=== PATIENT | male | born 1985 | race African-American/Black ===

== ENCOUNTER 2017-09-02 20:13 | Emergency (ER) | payer OTHER, SELFPAY ==
--- NOTE | 2017-09-02 21:08 | RAD ---
TWO VIEWS CHEST 09/02/17 PROVIDED CLINICAL HISTORY: Cough. FINDINGS: Comparison is made with the study dated 10/03/16. The cardiac and mediastinal silhouette is within normal limits. No focal consolidation, pleural fluid or pneumothorax apparent. IMPRESSION: No evidence for an acute cardiopulmonary process. POS: [facility]
[2017-09-02] MEDS ORDERED: Dexamethasone 4 mg/ml Vial ONE (23:11)
== END 2017-09-02 23:39 | disposition home or self-care (01) ==
LOC: ERS 20:13
DX: J45.901 Unspecified asthma with (acute) exacerbation (principal)
CPT/HCPCS: 71020; J1100; J7620

== ENCOUNTER 2023-08-21 04:20 | Emergency (ER) | payer SELFPAY ==
[2023-08-21] MEDS ORDERED: Acetaminophen 500 MG TAB ONE (05:07)
[2023-08-21 05:12] LABS: #Eosinphils 0.1 thou/uL (0.0-0.7); #Monocytes 0.8 thou/uL (0.11-0.59); %Basophils 0.4 % (0.0-1.0); %Eosinophils 1.1 % (0.0-10.0); %Lymphocytes 12.7 % (21.0-51.0); %Monocytes 14.5 % (0.0-10.0); %Neutrophils 71.1 % (42.0-75.0); Hematocrit 42.1 % (42.0-52.0); Hemoglobin 13.9 g/dL (14.0-18.0); Mean Corpuscular Hemoglobin 29.5 pg (27.0-31.0); Mean Corpuscular Volume 89.4 fl (78.0-98.0); Mean Platelet Volume 8.8 fL (7.4-10.4); Platelet Count 271 10x3/uL (130-400); RBC Distribution Width 12.3 % (11.5-14.5); Red Blood Cell (RBC) Count 4.71 mill/uL (4.70-6.10); White Blood Cell (WBC) Count 5.7 10x3/uL (4.8-10.8)
[2023-08-21] MEDS ORDERED: Ketorolac Tromethamine 30 MG/ML VIAL ONE (06:17)
[2023-08-21 06:58] LABS: Troponin I Less than 0.010 ng/mL (< 0.028)
[2023-08-21 07:04] LABS: ALT (SGPT) 22 U/L (8-55); AST (SGOT) 22 U/L (5-34); Albumin 3.9 g/dL (3.5-5.0); Alkaline Phosphatase 68 U/L (40-110); Anion Gap 16 mmol/L (10-20); BUN (Urea Nitrogen) 10 mg/dL (8.9-20.6); Bilirubin, Total 0.2 mg/dL (0.2-1.2); Calc. Creatinine Clearance 0 mL/min (70-130); Calcium 8.9 mg/dL (7.8-10.44); Carbon Dioxide 18 mmol/L (22-29); Chloride 107 mmol/L (98-107); Estimated GFR 72; Globulin 3.1 g/dL (2.4-3.5); Glucose 110 mg/dL (70-105); Lipase 15 U/L (8-78); Sodium 137 mmol/L (136-145)
[2023-08-21 07:30] LABS: SARS-CoV-2 NAA Rapid Test DETECTED (NotDetected)
== END 2023-08-21 07:46 | disposition home or self-care (01) ==
LOC: ERS 04:20
DX: U07.1 COVID-19 (principal); R07.9 Chest pain, unspecified
CPT/HCPCS: 36415; 71045; 80053; 83690; 84484; 85025; 93005; 96361; 96374; J1885